=== PATIENT | female | born 1990 | race Caucasian/White ===

== ENCOUNTER 2021-04-05 02:30 | Observation (INO) | payer SELFPAY ==
[2021-04-05] VITALS (10 sets, daily range): BP systolic 112–127; BP diastolic 68–84; PULSE 82–116; RESP 16–20; TEMP 36.5–36.8; O2SAT 95–98; BMI 28.3
[2021-04-05] MEDS: Lactated Ringers 1,000 ML 999 ML IV (02:57)
[2021-04-05 03:16] LABS: Absolute Lymphocyte Count 1.51 X10^3/uL (0.83-4.51); Basophil# 0.05 X10^3/uL; Basophil% 0.3 % (0-1); Eosinophil# 0.12 X10^3/uL; Eosinophils% 0.6 % (0-5); Hematocrit 33.5 % (37-47); Hemoglobin 11.4 g/dL (12.0-15.0); Lymphocyte # 1.51 X10^3/ul (0.83-4.51); Lymphocyte % 7.6 % (19-41); Mean Corpuscular Volume 94.1 fL (81-99); Mean Platelet Vol. 10.6 fl (6.2-12.0); Monocyte# 1.14 X10^3/uL; Monocyte% 5.7 % (0-10); NRBC Flagged by Analyzer 0 % (0-5); Neutrophil # 17.04 X10^3/uL (2.7-7.7); Neutrophil % 85.1 % (47-70); Platelet Count 210 K/mm3 (150-450); RBC Distribution Width CV 12.8 % (11.6-14.6); RBC Distribution Width SD 44.2 fl (35.1-43.9); Red Blood Count 3.56 M/mm3 (4.2-5.4)
[2021-04-05] MEDS: Ketorolac 30 MG/ML Syringe IV (04:02)
--- NOTE | 2021-04-05 04:43 | PCM.HP.OB ---
HPI - General HPI Narrative JENNA GARCIA, is a 30 F who presents after delivery at home. skiver operator reports laceration and EBL 1200ml. Baby was 9-7. PFSH PFSH Medical History (Updated 04/05/21 @ 04:[address] Mohamud Biggs MD) depression hemorrhage Superficial varicosities Vaginal after Home Medications 04/05/21 [History Last Taken Unknown] Allergy/AdvReac Type Severity Reaction Status Date / Time pollen extracts Allergy Other Verified 04/05/21 03:05 Surgical History (Updated 04/05/21 @ 03:29 by Eulalia Rivera) Previous section [place] teeth removed Social History Smoking Status: Never smoker Vital Signs Vital Signs Vital Signs: 04/05/21 02:40 04/05/21 02:53 04/05/21 03:24 Temperature 98.3 F 98.3 F Temperature Source Temporal Temporal Pulse Rate 116 H 95 Pulse Rhythm Regular Respiratory Rate 20 H Blood Pressure 112/77 Blood Pressure [BP] 112/77 Blood Pressure Mean [BP] 88 BP Systolic 112 BP Diastolic 77 Blood Pressure Source [BP] Monitor Blood Pressure Position [BP] Semi-Fowlers Blood Pressure Location [BP] Left Arm Pulse Ox 97 98 Oxygen Delivery Method Room Air 04/05/21 03:29 04/05/21 03:34 04/05/21 03:52 Temperature Temperature Source Pulse Rate 88 82 105 H Pulse Rhythm Respiratory Rate Blood Pressure 124/84 H Blood Pressure [BP] Blood Pressure Mean [BP] BP Systolic 124 BP Diastolic 84 Blood Pressure Source [BP] Blood Pressure Position [BP] Blood Pressure Location [BP] Pulse Ox 98 98 Oxygen Delivery Method Weight Weight: 160 lb Body Mass Index (BMI) 28.3 Physical Exam Narrative: 2nd degree perineal laceration, bilateral vaginal lacerations Labs Labs Labs: Blood Type B NEGATIVE Antibody Screen NEGATIVE Hct 33.5 % (37-47) L Hgb 11.4 g/dL (12.0-15.0) L Assessment & Plan (1) Perineal laceration during delivery: PLAN: Perineal & vaginal lacerations repaired - see operative note. CBC shows Hb of 11.4, no evidence of anemia. Patient agrees to stay for a few hours before being discharged to home.
--- NOTE | 2021-04-05 04:52 | PCM.OPRPT ---
Problems Associated Problem List Diagnoses (1) Perineal laceration during delivery: Report of Operation Date of Procedure: 04/05/21 Pre-Operative Diagnosis: Second degree perineal & bilateral vaginal lacerations Post-Operative Diagnosis: Same Surgery/Procedure Performed:: Repair of lacerations Surgeon: Mohamud Biggs Type of Anesthesia: Local Specimen's removed: None Estimated Blood Loss (mL): 200ml Description of Procedure: Patient placed in stirrups. She was numbed using lidocaine with epi. Lacerations were further assessed. She was prepped & draped. Lacerations repaired using 3-0 vicryl rapide in running and figure of 8 stitches. Vaginal tissue was friable so held pressure with a moist sponge & then it was immediately removed. Vaginal sweep performed. Haily placed over hemostatic but denuded vaginal tissue. Procedure Start Time: 04:02 Procedure Stop Time: 04:37 Complications None Admit VTE Documentation VTE Present on Admission: No
--- NOTE | 2021-04-05 05:54 | NURSING ---
pt has bilateral vaginal lacerations and midline 2nd degree perineal laceration repaired by Dr. Biggs
--- NOTE | 2021-04-05 05:56 | NURSING ---
Pt onto unit at 0230 complaining of increased vaginal bleeding and need for perineal repair per pt fashion photographer, Malini Kiran. Site Supervising Technical Operator reports pt EBL about 1200mL at home with vaginal packing placed and removed prior to pt arrival to . RN notes small amount of bleeding on pad pt states was placed around 0130. Uterus noted to be midline and firm to palpation with scant amount of bleeding. Pt states she previously felt lightheaded, but denies lightheadedness or dizziness at this time. Vital signs WNL. Pt able to void 300mL at 0250 using bedside commode. IV started, labs drawn, and LR bolus given per Dr. Biggs at 0257. Dr. Biggs began perineal repair at 0405 after obtaining verbal consent from pt. Repair completed by Dr. Biggs at 0437. EBL after repair 200mL. Dr. Biggs ordered standard orders and made aware pt needs rhogam per pt fashion photographer, who states baby is a positive blood type. Pt to stay on unit until after seen by Kendra Negrete CNM for morning rounds to ensure pt voiding adequately and bleeding is appropriate. Baby boy brought onto unit by pt second support person and given cuddles tag to ensure infant safety and security. Mother educated on plan of care per this RN and Dr. Biggs.
[2021-04-05] MEDS: Acetaminophen 500 MG Tablet 1000 MG PO (07:47)
--- NOTE | 2021-04-05 08:32 | PN.OBGYN_ITS ---
Subjective Subjective Patient seen at bedside. Feeling good and requesting to be discharged home. Ambulating and voiding without difficulty. Lochia is decreasing. without support. Perineum sore but using ice packs and Tylenol PO. Discussed with patient the option of receiving care with next at office and coordination of care with asphalt tile floor layer for safe delivery in hospital due to being a . Patient very thankful and was not aware that was an option. Objective Data Objective Data Vital Signs: Vital Signs Temp Pulse Resp BP Pulse Ox 97.7 F L 104 H 18 119/68 95 04/05/21 05:00 04/05/21 07:36 04/05/21 05:00 04/05/21 07:36 04/05/21 05:01 Oxygen Delivery Method Room Air Weight: 160 lb Body Mass Index (BMI) 28.3 Intake & Output: Intake and Output for Last 24 Hours 04/03/21 04/04/21 04/05/21 23:59 23:59 23:59 Intake Total 651.17 / 651.17 Output Total 300 / 300 Balance 351.17 / 351.17 Lab / Micro Data Result Diagrams: 04/05/21 03:00 Labs: Laboratory Results - last 24 hr 04/05/21 04/05/21 04/05/21 03:00 03:00 05:45 WBC 20.0 H RBC 3.56 L Hgb 11.4 L Hct 33.5 L MCV 94.1 MCH 32.0 MCHC 34.0 RDW Std Deviation 44.2 H RDW Coeff of Yina 12.8 Plt Count 210 MPV 10.6 Immature Gran % (Auto) 0.700 Neut % (Auto) 85.1 H Lymph % (Auto) 7.6 L [place] % (Auto) 5.7 Eos % (Auto) 0.6 Baso % (Auto) 0.3 Absolute Neuts (auto) 17.0 H Absolute Lymphs (auto) 1.51 Nucleated RBC % 0 Blood Type B NEGATIVE Antibody Screen NEGATIVE Screen NEGATIVE Baby's Blood Type PRESUMED RH POS Baby's REDDY Not Reportable ROS Eyes Eyes: Denies blurry vision, change in vision or spots in vision ENT HEENT: Denies dizziness or headache(s) Cardiovascular Cardiovascular: Denies abdominal pain, chest pain or dyspnea Respiratory/Chest Respiratory/Chest: Denies cough, dyspnea, shortness of breath at rest or shor tness of breath with exertion Gastrointestinal Gastrointestinal: Denies abdominal pain, diarrhea or vomiting Genitourinary Genitourinary: Denies change in urinary stream, difficulty urinating or dysuria Musculoskeletal Musculoskeletal: Reports none Integumentary Integumentary: Denies rash Neurologic Neurologic: Denies dizziness, headache(s), memory loss or weakness Psychiatric Psychiatric: Reports none Physical Exam Const alert and no apparent distress General Appearance: cooperative and comfortable Exam Limitations: no limitations HEENT normocephalic Eyes General Eye: normal appearance of both eyes Neck full ROM General: normal visual inspection Chest Chest: symmetrical chest wall rise Resp normal respiratory effort and normal air movement Effort and Inspection: symmetric chest movement Auscultation: clear to auscultation bilaterally Cardio regular rate and regular rhythm GI normal to inspection, nondistended, normoactive bowel sounds Back/Spine normal ROM Extremity full ROM and no calf tenderness General Extremity: normal exam except as noted Skin no rashes or lesions noted Neuro CN's II-XII intact bilaterally Psych mental status grossly normal Assessment & Plan (1) Perineal laceration during delivery: QUALIFIERS: Perineal laceration degree: second degree Qualified Code(s): O70.1 - Second degree perineal laceration during delivery PLAN: PPD 1 home delivery- Here for perineal laceration repair Routine care Pain control D/C home with follow up in office or with chief concierge
--- NOTE | 2021-04-05 08:32 | PCM.DC ---
Discharge Instructions Diet Discharge Diet: No restrictions Activity May resume sexual activity in: 6-8 weeks Weight Bearing Status: Weight bearing as tolerated Dressing / Incision Call your doctor if you observe: Fever of 101 or Higher, Inability to urinate, Using more than 1 pad per hour, Shortness of breath, Chest pain, Calf discomfort and Uncontrolled pain Follow Up Care Please Follow Up With: Brenda Negrete CNM When: 2 weeks virtual visit/ 6 weeks in office Test Results: Test results from this visit will be discussed in further detail at your follow-up appointment, if applicable. Discharge Plan Admission Reason For Visit: VAGINAL REPAIR Attending Provider: Mohamud Biggs Primary Care Provider: Care Physician,Marylou Primary Discharge Orders/Prescriptions Prescriptions: No Action RF: 0
--- NOTE | 2021-04-05 08:33 | PCM.DC ---
Discharge Instructions Diet Discharge Diet: No restrictions Activity May resume sexual activity in: 6-8 weeks Weight Bearing Status: Weight bearing as tolerated Dressing / Incision Call your doctor if you observe: Fever of 101 or Higher, Inability to urinate, Using more than 1 pad per hour, Shortness of breath, Chest pain, Calf discomfort and Uncontrolled pain Follow Up Care Please Follow Up With: Brenda Negrete CNM Test Results: Test results from this visit will be discussed in further detail at your follow-up appointment, if applicable. Discharge Plan Admission Reason For Visit: VAGINAL REPAIR Attending Provider: Mohamud Biggs Primary Care Provider: Care Physician,Marylou Primary Discharge Orders/Prescriptions Prescriptions: No Action RF: 0 Referrals / Follow Up: Care Physician,No Primary [Primary Care Provider] - Disposition Patient Disposition: Home, self care
== END 2021-04-05 09:15 | disposition home or self-care (01) ==
LOC: WP 08:34 → WPOUT 12:23 → WP 12:23 → WPOUT 12:25 → WP 12:25
PROVIDERS: Admitting Provider Obstetrics & Gynecology; Visit Provider Obstetrics & Gynecology
DX: O70.1 Second degree perineal laceration during delivery (principal); O34.219 Maternal care for unspecified type scar from previous cesarean delivery; N85.8 Other specified noninflammatory disorders of uterus
CPT/HCPCS: 59300; 96361; 96374; 36415; 85025; 85461; 86850; 86900; 86901; 90384; 96372; 99218; J7120; G0378; J2790